=== PATIENT | female | born 1940 | race Caucasian/White ===

== ENCOUNTER 2017-02-10 10:09 | Emergency (ER) | payer OTHER ==
[~2017-02-10] VITALS: Ht 165.1 cm; Wt 67.2 kg
[~2017-02-10 10:09] MED LIST: ALBUTEROL S2 MG/5 ML PO; COLACE100 MG PO; MEDDP PO; MUCINEX600 MG PO; PHEDML PO; THEO-24100 MG PO
[2017-02-10 10:18] VITALS: BP 117/75
[2017-02-10 10:52] LABS: BASOPHIL % 0.5 % (0-2); PLATELET COUNT 253 x10^3mcL (130-400); RED CELL DISTRIBUTION WIDTH 13.9 % (11.5-14.5)
[2017-02-10 10:56] LABS: CALCIUM 8.9 mg/dL (8.5-10.1); CARBON DIOXIDE 32.5 mmol/L (21-32); CHLORIDE SERUM 102 mmol/L (98-107); CREATININE SERUM 1.1 mg/dL (0.6-1.0); GLUCOSE SERUM 118 mg/dL (74-106); POTASSIUM SERUM 4.2 mmol/L (3.5-5.1); SODIUM SERUM 138 mmol/L (136-145)
[2017-02-10 11:00] LABS: ALBUMIN 4.4 g/dL (3.4-5.0); ALKALINE PHOSPHATASE 75 U/L (46-116); ALT/SGPT 23 U/L (14-59); AST/SGOT 20 U/L (15-37); BILIRUBIN TOTAL 0.4 mg/dL (0.20-1.00)
[2017-02-10 11:02] LABS: TOTAL PROTEIN, SERUM 8.4 g/dL (6.4-8.2)
== END 2017-02-10 12:09 | disposition home or self-care (01) ==
LOC: ED 10:09
PROVIDERS: Emergency Medicine
DX: R09.89 Other specified symptoms and signs involving the circulatory and respiratory systems (principal); I10 Essential (primary) hypertension
CPT/HCPCS: G0202; Q9967

== ENCOUNTER 2018-01-06 14:38 | Emergency (ER) | payer OTHER ==
[~2018-01-06] VITALS: Ht 152.4 cm; Wt 68.0 kg
[2018-01-06 14:52] VITALS: BP 139/90; Ht 152.4 cm; Wt 68.0 kg
== END 2018-01-06 17:28 | disposition home or self-care (01) ==
LOC: ED 14:38
DX: M75.32 Calcific tendinitis of left shoulder (principal); I10 Essential (primary) hypertension; J45.909 Unspecified asthma, uncomplicated

== ENCOUNTER 2018-12-28 12:01 | Emergency (ER) | payer OTHER ==
[~2018-12-28] VITALS: Ht 162.6 cm; Wt 67.4 kg
[2018-12-28 12:17] VITALS: Ht 162.6 cm; Wt 67.4 kg
[2018-12-28 16:37] VITALS: BP 156/80
== END 2018-12-28 16:37 | disposition home or self-care (01) ==
LOC: ED 12:01
DX: M17.12 Unilateral primary osteoarthritis, left knee (principal); M25.462 Effusion, left knee; J45.909 Unspecified asthma, uncomplicated; I10 Essential (primary) hypertension; Z98.890 Other specified postprocedural states
CPT/HCPCS: J1100; J1885

== ENCOUNTER → 2019-11-26 | Outpatient (CLI) | payer OTHER | END | disposition home or self-care (01) | LOC: RD 10:20 | DX: M25.511 Pain in right shoulder (principal); M85.80 Other specified disorders of bone density and structure, unspecified site ==